=== PATIENT | female | born 1970 | race African-American/Black ===

== ENCOUNTER 2017-11-24 23:10 | Emergency (ER) | payer MEDICAID ==
[~2017-11-24] VITALS: Ht 165.1 cm; Wt 73.0 kg
[2017-11-25] MEDS ORDERED: ACETAMINOPHEN 325MG TABLET PO PRN (01:00)
[2017-11-25 02:00] LABS: BASOPHILS % 0.8 % (0.0-2.0); EOSINOPHILS % 0.8 % (0.0-5.0); HEMATOCRIT. 30.4 % (36.0-48.0); HEMOGLOBIN. 9.9 g/dL (12.0-16.0); LYMPHOCYTES % 24.4 % (20.0-50.0); MEAN CORPUSCULAR HEMOGLOBIN 23.2 pg (28.0-32.0); MEAN CORPUSCULAR VOLUME 70.9 fL (81.0-99.0); MONOCYTES % 7.2 % (2.0-8.0); NEUTROPHILS % 66.8 % (40.0-76.0); RED BLOOD CELL COUNT 4.29 mill/uL (4.2-5.4); RED CELL DISTRIBUTION WIDTH 20.3 % (11.6-14.6)
[2017-11-25 02:08] LABS: CHLORIDE 99 mEq/L (98-107)
[2017-11-25 02:11] LABS: PARTIAL THROMBOPLASTIN TIME 26.1 sec (23.4-31.0); PROTHROMBIN TIME 9.9 sec (9.1-11.1)
[2017-11-25 02:23] LABS: B-HCG QUANTITATIVE < 1 mIU/mL (<3)
[2017-11-25 02:43] LABS: PLATELET 125 x1000/uL (130-400)
[2017-11-25 02:44] LABS: MEAN PLATELET VOLUME 12.3 fl (7.4-10.4)
[2017-11-25] MEDS ORDERED: SODIUM CHLORIDE 0.9% 1,000 ML IV ONE (02:45)
[2017-11-25] MEDS ORDERED: METOPROLOL TARTRATE 50MG TABLET PO ONE (03:30)
[2017-11-25] MEDS ORDERED: MEDROXYPROGESTERONE ACETATE 150MG/ML VIAL IM ONE (03:30)
[2017-11-25 04:48] VITALS: BP 121/129
== END 2017-11-25 05:17 | disposition home or self-care (01) ==
LOC: ER 23:10
DX: N92.0 Excessive and frequent menstruation with regular cycle (principal); D64.9 Anemia, unspecified; R00.0 Tachycardia, unspecified; I10 Essential (primary) hypertension; F17.210 Nicotine dependence, cigarettes, uncomplicated
CPT/HCPCS: 36415; 76830; 76856; 80053; 81025; 84702; 85025; 85610; 85730; 86850; 86900; 86901; 96360; 96372; 99285; J1050; J7030; Z7610